=== PATIENT | female | born 1960 | race Caucasian/White ===

== ENCOUNTER 2017-12-16 16:27 | Outpatient (CLI) | payer BC | END 2017-12-16 16:28 | disposition home or self-care (01) | LOC: BICMAMMO 16:27 | PROVIDERS: ATTEND Obstetrics & Gynecology | DX: Z12.31 Encounter for screening mammogram for malignant neoplasm of breast (principal) | CPT/HCPCS: 77063; 77067 ==

== ENCOUNTER 2019-01-04 12:13 | Outpatient (CLI) | payer BC | END 2019-01-04 12:14 | disposition home or self-care (01) | LOC: BICMAMMO 12:13 | PROVIDERS: ATTEND Obstetrics & Gynecology | DX: Z12.31 Encounter for screening mammogram for malignant neoplasm of breast (principal) | CPT/HCPCS: 77063; 77067 ==

== ENCOUNTER 2019-12-10 07:35 | Outpatient (CLI) | payer BC ==
--- NOTE | 2019-12-10 09:15 | MRI ---
LUMBAR SPINE MRI WITHOUT CONTRAST: Date: 12/10/2019 COMPARISON: None. HISTORY: Low back pain radiating down the right leg for 9 months. TECHNIQUE: Multiplanar, multisequence MR imaging of the lumbar spine without contrast. FINDINGS: The sagittal STIR imaging demonstrates no focal area of osseous marrow edema. On the basis of five sonny mbar-type vertebral bodies, conus medullaris terminates at the L1 level. T12-L1: Intervertebral disc height and signal intensity within normal limits with no significant isaias tral canal or neural foraminal stenosis. L1-2; Intervertebral disc height and signal intensity within normal limits. No significant central c anal or neural foraminal stenosis. L2-3: Mild disc desiccation. Mild bilateral facet hypertrophy. No significant central canal or neura l foraminal stenosis. L3-4: Mild bilateral facet hypertrophy. Intervertebral disc height and signal intensity within rafat l limits. No significant central canal or neural foraminal stenosis. L4-5: Mild disc space narrowing with disc desiccation. Mild bilateral facet hypertrophy. No signific ant central canal or neural foraminal stenosis. L5-S1: There is disc desiccation and mild disc space narrowing with mild bilateral facet hypertrophy . No significant central canal or neural foraminal stenosis. The imaged retroperitoneal structures demonstrate no acute findings. IMPRESSION: Lumbar spine degenerative change as detailed above. POS: OFF
== END 2019-12-10 07:36 | disposition home or self-care (01) ==
LOC: TBSIIMAG 07:35
PROVIDERS: ATTEND Physical Medicine & Rehabilitation
DX: M47.26 Other spondylosis with radiculopathy, lumbar region (principal)
CPT/HCPCS: 72148

== ENCOUNTER 2022-07-15 10:13 | Outpatient (CLI) | payer BC | END 2022-07-15 10:14 | disposition home or self-care (01) | LOC: RAD 10:13 | PROVIDERS: ATTEND Internal Medicine | DX: M25.511 Pain in right shoulder (principal) ==

== ENCOUNTER 2024-08-21 09:42 | Outpatient (CLI) | payer BC | END 2024-08-21 09:43 | disposition home or self-care (01) | LOC: BICRAD 09:42 | PROVIDERS: ATTEND Internal Medicine | DX: R07.81 Pleurodynia (principal) ==